=== PATIENT | male | born 1960 | race Caucasian/White ===

== ENCOUNTER 2021-03-21 16:43 | Emergency (ER) | payer OTHER, SELFPAY ==
[2021-03-21 17:22] VITALS: BP 151/85; PULSE 78; RESP 16; TEMP 36.7; O2SAT 97; BMI 27.8
--- NOTE | 2021-03-21 17:26 | DI.RAD.S_ITS ---
PROCEDURE: XR FOOT LT MIN 3V INDICATIONS: dropped chair on foot TECHNIQUE: 3 views of the foot were acquired. COMPARISON: None. FINDINGS: Bones: No fractures or dislocations. Irregularity is seen of the lateral sesamoid bone, yet without a definite, acute fracture. No suspicious bony lesions. Soft tissues: No tibiotalar joint effusion. Achilles tendon appears normal. IMPRESSION: No definite, acute fractures can be seen. If there is point tenderness (or other clinical suspicion for a fracture not seen on these images) please consider a dedicated CT for further evaluation. Dictated by: Yang Sarah M.D. on 03/21/2021 at 16:55 Approved by: Yang Sarah M.D. on 03/21/2021 at 16:56
--- NOTE | 2021-03-21 18:13 | ED_ITS ---
HPI - Extremity Injury (Lower) General Chief Complaint: Extremity Injury, Lower Stated Complaint: left foot issues Time Seen by Provider: 03/21/21 18:07 History of Present Illness HPI Narrative: 60-year-old male nonsmoker with history of gout presents with a chief complaint of increasing pain, swelling and redness of his left foot. He states symptoms started after he dropped a chair on the top of his foot a few days ago. However, he has increasing pain and redness over those past few days. He has had no fever or chills nor nausea or vomiting. He does state that [place] and has been drinking more alcohol than normal and eating less healthy food. His pain is worse with ambulation improves with rest. Related Data Previous Rx's Medication Instructions Recorded doxycycline hyclate 100 mg tablet 100 mg PO BID #20 tab 03/21/21 Allergies Allergy/AdvReac Type Severity Reaction Status Date / Time ampicillin Allergy Intermediate Rash Verified 03/21/21 17:42 Review of Systems Review of Systems Narrative: GENERAL: Denies chills, fatigue, malaise, fever, sweats. HEENT: Denies sinus pain, ear pain, sore throat, difficulty swallowing, dizziness. RESPIRATORY: Denies dyspnea, cough, wheezing, hemoptysis, sputum. CARDIOVASCULAR: Denies chest pain, palpitations, orthopnea, edema, GASTROINTESTINAL: Denies nausea, vomiting, abdominal pain, diarrhea, constipation, melena. : Denies dysuria, frequency, incontinence, hematuria, urinary retention. MUSCULOSKELETAL: See HPI SKIN: See HPI NEUROLOGIC: Denies weakness, headache, numbness, change in speech, confusion, seizures, incoordination. PSYCHIATRIC: No concerning psychosocial issues. 12 point review of systems is negative except for those stated above Patient History Alcohol type: beer Substance Use Type: does not use Exam Narrative Exam Narrative: GENERAL: [60] year old patient appears stated age. Well- developed patient, in mild distress. HEAD: Atraumatic. Normocephalic. EYES: Pupils equal round and reactive. Extraocular motions intact. No scleral icterus. No injection or drainage. ENT: Nose without bleeding, purulent drainage. Throat without erythema, tonsillar hypertrophy or exudate. Airway patent. NECK: Trachea midline. Non tender CARDIOVASCULAR: Regular rate and rhythm without murmurs, gallops, or rubs. RESPIRATORY: Clear to auscultation. Breath sounds equal bilaterally. No wheezes, rales, or rhonchi. GASTROINTESTINAL: Abdomen soft, non-tender, nondistended. EXTREMITIES: Dorsum of left foot with erythema, warmth and tenderness, most significant at the 1st MTP, no induration or fluctuance. No obvious breaks in the skin. BACK: Nontender without deformity or crepitance. No flank tenderness. NEURO: AOx3. SKIN: No rash or erythema of visible areas Initial Vital Signs Initial Vital Signs: Vital Signs Temperature 98.0 F 03/21/21 17:22 Pulse Rate 78 03/21/21 17:22 Respiratory Rate 16 03/21/21 17:22 Blood Pressure 151/85 H 03/21/21 17:22 Pulse Oximetry 97 03/21/21 17:22 Course Orders Ordered: ED Orders 03/21/21 17:26 XR foot LT min 3V Stat Vital Signs Vital signs: Vital Signs - 8 hr 03/21/21 17:22 03/21/21 18:44 Temperature 98.0 F Pulse Rate 78 68 Respiratory Rate 16 Blood Pressure 151/85 H 152/92 H Pulse Oximetry 97 97 MDM - Extremity Injury (Lower) Imaging Data Extremity x-ray #1: Radiologist's Impression: [address] [id number] ReportSigned Patient: Dedrick Andrade [facility]#: [id number]: 1960cct:[id number]/Sex: 60 / MDate of Service: 03/21/21Loc: EDAccession Number: [id number] Procedure: XR foot LT min 3V Ordering Provider: Petey Medrano D.O. PROCEDURE: XR FOOT LT MIN 3V INDICATIONS: dropped chair on foot TECHNIQUE: 3 views of the foot were acquired. COMPARISON: None. FINDINGS: Bones: No fractures or dislocations. Irregularity is seen of the lateral sesamoid bone, yet without a definite, acute fracture. No suspicious bony lesions. Soft tissues: No tibiotalar joint effusion. Achilles tendon appears normal. IMPRESSION: No definite, acute fractures can be seen. If there is point tenderness (or other clinical suspicion for a fracture not seen on these images) please consider a dedicated CT for further evaluation. Dictated by: Yang Sarah M.D. on 03/21/2021 at 16:55 Approved by: Yang Sarah M.D. on 03/21/2021 at 16:56 MDM Narrative Medical decision making narrative: Patient with pain, redness and swelling of his left foot in the aftermath of an injury. X-ray is unremarkable and given that pain, redness and warmth has been gradually worsening we discussed whether not gout versus infection was playing a role. He does admit that he has had some dietary indiscretions over the past few days, we discussed how this would put him at increased risk of a gouty exacerbation. He has his own colchicine and I encouraged him to take 1.2 mg upon discharge followed by 0.6 mg 1 hour later. Cellulitis is also considered, patient has no systemic findings such as fever or chills and denies any red streaks. If he does not experience a near complete resolution of symptoms after colchicine I have given him a prescription for antibiotic that he may fill. Return precautions given and questions answered to his apparent satisfaction Discharge Plan Departure Patient Disposition: Home Clinical Impression: Gout attack Qualifiers: Gout site: foot Gout etiology: unspecified cause Laterality: left Qualified Code(s): M10.9 - Gout, unspecified Instructions: DI for Gout Activity Restrictions/Additional Instructions: *You have been diagnosed with [left foot pain, likely gouty arthritis, possibly cellulitis] *What to do: *Please continue to take your regular medications as directed. [ ] Please take your own Colchicine as follows: 1.2mg by mouth upon discharge and then 0.6mg by mouth one hour later. If you don't have significant improvement by tomorrow please then get the prescription filled [ ] New medication written as a paper prescription [ ] No new medications given *Please follow up with your primary care provider in 2-3 days, call for an appointment. Let them know you were seen in the Emergency Department and that we ask that you be seen in follow up. We will electronically transmit a record of today's note if your PCP is in our system *If you do not have a primary care provider please contact the [facility] Resource line at [phone]. They will ask some questions about your medical history and help get you set up with a doctor in the community. *Return to Emergency Department if you should have any new, worsening or concerning symptoms, such as [fever greater than 101 F, shaking chills, worsening pain, persistent vomiting or other bothersome symptoms] Prescriptions: New doxycycline hyclate 100 mg tablet 100 mg PO BID Qty: 20 RF: 0
[2021-03-21 18:44] VITALS: BP 152/92; PULSE 68; O2SAT 97
== END 2021-03-21 18:49 | disposition home or self-care (01) ==
PROVIDERS: Emergency Provider Emergency Medicine
DX: M10.9 Gout, unspecified (principal); W22.8XXA Striking against or struck by other objects, initial encounter
CPT/HCPCS: 73630; 99281; 99283